=== PATIENT | male | born 1950 | race Caucasian/White ===

== ENCOUNTER 2021-12-25 17:41 | Inpatient (IN) | payer MEDICARE ==
[~2021-12-25] VITALS: Ht 167.6 cm; Wt 70.3 kg
[2021-12-25] MEDS ORDERED: MIDAZOLAM HCL 2 MG/2 ML VIAL IV ONE (18:30)
[2021-12-25 18:37] LABS: BG BASE EXCESS 2.3 mmol/L (-2.0-2.0); BG CARBOXYHEMOGLOBIN 0.2 % (0.5-1.5); BG DEOXYHEMOGLOBIN 2.5 % (0.0-5.0); BG FRACTION INSPIRED OXYGEN 21; BG HCO3 ACT 23.5 mmol/L (22.0-26.0); BG METHEMOGLOBIN 0.2 % (0.0-1.5); BG OXYGEN SATURATION 97.5 % (92.0-98.5); BG OXYHEMOGLOBIN 97.1 % (94.0-97.0); BG PCO2 26.9 mmHg (35.0-45.0); BG PH 7.559 (7.350-7.450); BG SAMPLE SITE RIGHT RADIAL; BG TOTAL HEMOGLOBIN 12.8 g/dL (12.0-18.0); BG VENT MODE ROOM AIR
[2021-12-25 18:46] LABS: CHLORIDE 72 mEq/L (98-107)
[2021-12-25 18:52] LABS: BASOPHILS % 0.2 % (0.0-2.0); EOSINOPHILS % 0.3 % (0.0-5.0); HEMATOCRIT. 35.4 % (42.0-52.0); HEMOGLOBIN. 12.6 g/dL (14.0-18.0); LYMPHOCYTES % 7.8 % (20.0-50.0); MEAN CORPUSCULAR HEMOGLOBIN 30.4 pg (28.0-32.0); MEAN CORPUSCULAR VOLUME 85.2 fL (80.0-94.0); MEAN PLATELET VOLUME 8.8 fl (7.4-10.4); MONOCYTES % 9.8 % (2.0-8.0); NEUTROPHILS % 81.9 % (40.0-76.0); PLATELET 216 x1000/uL (130-400); RED BLOOD CELL COUNT 4.15 mill/uL (4.7-6.1); RED CELL DISTRIBUTION WIDTH 13.3 % (11.6-14.6)
[2021-12-25 18:55] LABS: ETHANOL BLOOD < 10 mg/dL
[2021-12-25] MEDS ORDERED: POTASSIUM CHLORIDE INJ 40 MEQ in DEXT 5% WATER 250 ML IV ONE (19:15)
[2021-12-25] MEDS ORDERED: SODIUM CHLORIDE 3% 500ML IV SOLN IV ONE (19:15)
[2021-12-25] MEDS ORDERED: SODIUM CHLORIDE 3% 150 ML IV NR (19:30)
[2021-12-25] MEDS: KCL 20MEQ/100ML X 2 FOR TOTAL KCL 40MEQ/200ML IV SCH ×2 (20:30→21:30)
[2021-12-26] VITALS (7 sets, daily range): BP systolic 130–182; BP diastolic 69–89
[2021-12-26 03:57] LABS: *AMPHETAMINES SCREEN URINE NEGATIVE (NEGATIVE); *BARBITURATES SCREEN URINE NEGATIVE (NEGATIVE); *BENZODIAZEPINES SCREEN URINE PRESUMTIVE POSITIVE (NEGATIVE); *COCAINE SCREEN URINE NEGATIVE (NEGATIVE); CANNABINOID URINE SCREEN NEGATIVE (NEGATIVE); METHADONE URINE SCREEN NEGATIVE (NEGATIVE); OPIATES URINE SCREEN NEGATIVE (NEGATIVE); PHENCYCLIDINE URINE SCREEN NEGATIVE (NEGATIVE)
[2021-12-26 04:12] LABS: CLARITY URINE CLEAR (CLEAR); COLOR URINE YELLOW (YELLOW); KETONES URINE TRACE (NEGATIVE); PROTEIN URINE TRACE (NEGATIVE); SPECIFIC GRAVITY URINE 1.008 (1.005-1.030)
[2021-12-26 04:13] LABS: LEUKOCYTE ESTERASE URINE NEGATIVE (NEGATIVE); NITRITE URINE NEGATIVE (NEGATIVE); OCCULT BLOOD URINE 1+ (NEGATIVE)
[2021-12-26] MEDS ORDERED: ONDANSETRON HCL 4MG/2ML INJ IV PRN (11:00)
[2021-12-26] MEDS ORDERED: MORPHINE SULFATE 2 MG/ML CPJ (NOT FOR IM USE) IV PRN (11:00)
[2021-12-26] MEDS ORDERED: IPRATROPIUM/ALBUTEROL 0.5-3(2.5)MG/3ML NEB NEB PRN (11:00)
[2021-12-26] MEDS ORDERED: ACETAMINOPHEN 650MG SUPP PR PRN (11:00)
[2021-12-26] MEDS ORDERED: DIPHENHYDRAMINE 50MG/ML VIAL IV PRN (11:00)
[2021-12-26] MEDS: SODIUM CHLORIDE 0.9% 1,000 ML IV SCH ×2 (11:30→23:45)
[2021-12-26] MEDS: PIPERACILLIN/TAZOBACTAM 3.375 G in DEXTROSE 5% WATER 50 ML IV SCH ×2 (13:07→22:30)
[2021-12-26] MEDS ORDERED: LOSA100T32 MT (13:15)
[2021-12-26] MEDS ORDERED: FINA5TAB3 MT (13:15)
[2021-12-26] MEDS ORDERED: DOXA4TAB3 MT (13:15)
[2021-12-26] MEDS ORDERED: HYDR25TA MT (13:15)
[2021-12-26 13:16] LABS: CHLORIDE 79 mEq/L (98-107)
[2021-12-26] MEDS ORDERED: KEPP500 MT (13:17)
[2021-12-26] MEDS ORDERED: METF-414 MT (13:17)
[2021-12-26 13:22] LABS: PROTHROMBIN TIME 10.7 sec (9.6-11.0)
[2021-12-26 13:52] LABS: BASOPHILS % 0.1 % (0.0-2.0); EOSINOPHILS % 0.2 % (0.0-5.0); HEMATOCRIT. 33.5 % (42.0-52.0); HEMOGLOBIN. 12.1 g/dL (14.0-18.0); LYMPHOCYTES % 7.6 % (20.0-50.0); MEAN CORPUSCULAR HEMOGLOBIN 30.5 pg (28.0-32.0); MEAN PLATELET VOLUME 8.9 fl (7.4-10.4); MONOCYTES % 10.8 % (2.0-8.0); NEUTROPHILS % 81.3 % (40.0-76.0); PLATELET 232 x1000/uL (130-400); RED BLOOD CELL COUNT 3.95 mill/uL (4.7-6.1); RED CELL DISTRIBUTION WIDTH 13.3 % (11.6-14.6)
[2021-12-26] MEDS ORDERED: NALOXONE HCL 0.4MG/ML VIAL IV PRN (14:00)
[2021-12-26] MEDS: FINASTERIDE 5MG TABLET PO SCH (14:47)
[2021-12-26] MEDS ORDERED: POTASSIUM CHLORIDE INJ 60 MEQ in DEXT 5% WATER 500 ML IV ONE (15:00)
[2021-12-26] MEDS ORDERED: DEXTROSE 50% WATER 50ML SYRINGE IV PRN (15:30)
[2021-12-26] MEDS: BLOOD SUGAR DIAGNOSTIC STRIP TEST SCH ×2 (17:27→21:44)
[2021-12-26] MEDS: INSULIN LISPRO 100 UNITS/ML SUBCUT SCH ×2 (17:43→22:00)
[2021-12-26] MEDS: LEVETIRACETAM 500MG TABLET PO SCH (17:44)
[2021-12-26 17:53] LABS: SODIUM URINE RANDOM 29 mEq/L
[2021-12-26 18:46] LABS: CHLORIDE 81 mEq/L (98-107)
[2021-12-26 18:59] LABS: CREATINE KINASE 203 IU/L (39-308); CREATINE KINASE MB FRACTION 5.4 ng/mL (0.5-3.6)
[2021-12-26] MEDS: LOSARTAN POTASSIUM 50 MG TABLET PO SCH (21:44)
[2021-12-26] MEDS: LORAZEPAM 2MG/ML CPJ IV PRN (23:13)
[2021-12-27] VITALS (11 sets, daily range): BP systolic 133–189; BP diastolic 57–104
[2021-12-27 02:41] LABS: CHLORIDE 86 mEq/L (98-107)
[2021-12-27 02:50] LABS: CREATINE KINASE 176 IU/L (39-308); CREATINE KINASE MB FRACTION 4.3 ng/mL (0.5-3.6)
[2021-12-27] MEDS: PIPERACILLIN/TAZOBACTAM 3.375 G in DEXTROSE 5% WATER 50 ML IV SCH ×3 (05:08→21:32)
[2021-12-27] MEDS: BLOOD SUGAR DIAGNOSTIC STRIP TEST SCH ×4 (06:56→20:18)
[2021-12-27 07:05] LABS: BASOPHILS % 0.2 % (0.0-2.0); EOSINOPHILS % 0.5 % (0.0-5.0); HEMATOCRIT. 34.5 % (42.0-52.0); HEMOGLOBIN. 12.4 g/dL (14.0-18.0); LYMPHOCYTES % 10.6 % (20.0-50.0); MEAN CORPUSCULAR HEMOGLOBIN 31.3 pg (28.0-32.0); MONOCYTES % 10.5 % (2.0-8.0); NEUTROPHILS % 78.2 % (40.0-76.0); PLATELET 253 x1000/uL (130-400); RED BLOOD CELL COUNT 3.97 mill/uL (4.7-6.1); RED CELL DISTRIBUTION WIDTH 13.6 % (11.6-14.6)
[2021-12-27 07:08] LABS: CHLORIDE 86 mEq/L (98-107)
[2021-12-27 07:32] LABS: HDL CHOLESTEROL 45 mg/dL (40-59); LDL CHOLESTEROL 110 mg/dL (5-100)
[2021-12-27] MEDS: INSULIN LISPRO 100 UNITS/ML SUBCUT SCH ×4 (07:40→21:31)
[2021-12-27] MEDS: FINASTERIDE 5MG TABLET PO SCH (08:50)
[2021-12-27] MEDS: LORAZEPAM 2MG/ML CPJ IV PRN ×2 (08:50→13:54)
[2021-12-27] MEDS: LOSARTAN POTASSIUM 50 MG TABLET PO SCH ×2 (08:50→17:17)
[2021-12-27] MEDS: LEVETIRACETAM 500MG TABLET PO SCH ×2 (08:50→17:16)
[2021-12-27] MEDS ORDERED: FAMOTIDINE 20MG/2ML VIAL IV SCH (09:00)
[2021-12-27] MEDS: SODIUM CHLORIDE 0.9% 1,000 ML IV SCH ×2 (10:43→20:18)
[2021-12-27] MEDS ORDERED: POTASSIUM CHLORIDE 20MEQ TABLET SR PO SCH ×2 (13:00→15:00)
[2021-12-27] MEDS ORDERED: POTASSIUM CHLORIDE INJ 40 MEQ in DEXT 5% WATER 250 ML IV ONE (13:00)
[2021-12-27] MEDS: HYDRALAZINE 20MG/ML VIAL IV PRN ×2 (13:26→20:17)
[2021-12-27] MEDS: KCL 20MEQ/100ML X 2 FOR TOTAL KCL 40MEQ/200ML IV SCH ×2 (15:30→17:17)
[2021-12-27 16:31] LABS: CHLORIDE 86 mEq/L (98-107)
[2021-12-27] MEDS: AMLODIPINE 5MG TABLET PO SCH (17:17)
[2021-12-27] MEDS ORDERED: CLONIDINE 0.2MG TABLET PO PRN (19:00)
[2021-12-28] VITALS (12 sets, daily range): BP systolic 111–163; BP diastolic 54–88
[2021-12-28] MEDS: SODIUM CHLORIDE 0.9% 1,000 ML IV SCH ×3 (05:31→20:52)
[2021-12-28] MEDS: PIPERACILLIN/TAZOBACTAM 3.375 G in DEXTROSE 5% WATER 50 ML IV SCH ×3 (05:31→23:18)
[2021-12-28] MEDS: HYDRALAZINE 20MG/ML VIAL IV PRN (07:12)
[2021-12-28] MEDS: BLOOD SUGAR DIAGNOSTIC STRIP TEST SCH ×4 (07:30→23:05)
[2021-12-28] MEDS: INSULIN LISPRO 100 UNITS/ML SUBCUT SCH ×4 (08:00→22:55)
[2021-12-28] MEDS: LEVETIRACETAM 500MG TABLET PO SCH ×2 (08:27→18:08)
[2021-12-28] MEDS: LOSARTAN POTASSIUM 50 MG TABLET PO SCH ×2 (08:28→23:10)
[2021-12-28] MEDS: AMLODIPINE 5MG TABLET PO SCH ×2 (08:28→23:10)
[2021-12-28] MEDS: FINASTERIDE 5MG TABLET PO SCH (08:28)
[2021-12-28] MEDS: FAMOTIDINE 20MG TABLET PO SCH (08:28)
[2021-12-28] MEDS: ACETAMINOPHEN 650MG/20.3ML UDC PO PRN (08:43)
[2021-12-28] MEDS: POTASSIUM CHLORIDE 20MEQ TABLET SR PO SCH ×2 (13:30→18:08)
[2021-12-29] VITALS (16 sets, daily range): BP systolic 141–174; BP diastolic 72–109
[2021-12-29 06:25] LABS: BASOPHILS % 0.4 % (0.0-2.0); EOSINOPHILS % 0.7 % (0.0-5.0); HEMATOCRIT. 37.3 % (42.0-52.0); HEMOGLOBIN. 12.9 g/dL (14.0-18.0); LYMPHOCYTES % 10.9 % (20.0-50.0); MEAN CORPUSCULAR HEMOGLOBIN 30.6 pg (28.0-32.0); MEAN PLATELET VOLUME 8.3 fl (7.4-10.4); MONOCYTES % 8.9 % (2.0-8.0); NEUTROPHILS % 79.1 % (40.0-76.0); PLATELET 303 x1000/uL (130-400); RED CELL DISTRIBUTION WIDTH 13.8 % (11.6-14.6)
[2021-12-29] MEDS: BLOOD SUGAR DIAGNOSTIC STRIP TEST SCH ×4 (06:28→21:53)
[2021-12-29] MEDS: PIPERACILLIN/TAZOBACTAM 3.375 G in DEXTROSE 5% WATER 50 ML IV SCH ×3 (06:47→22:00)
[2021-12-29 07:07] LABS: CHLORIDE 97 mEq/L (98-107)
[2021-12-29] MEDS: INSULIN LISPRO 100 UNITS/ML SUBCUT SCH ×4 (07:30→21:00)
[2021-12-29] MEDS: LEVETIRACETAM 500MG TABLET PO SCH ×2 (09:32→17:56)
[2021-12-29] MEDS: LOSARTAN POTASSIUM 50 MG TABLET PO SCH ×2 (09:32→21:58)
[2021-12-29] MEDS: FAMOTIDINE 20MG TABLET PO SCH (09:32)
[2021-12-29] MEDS: AMLODIPINE 5MG TABLET PO SCH ×2 (09:32→21:58)
[2021-12-29] MEDS: FINASTERIDE 5MG TABLET PO SCH (09:32)
[2021-12-29] MEDS: POTASSIUM CHLORIDE 20MEQ TABLET SR PO SCH ×2 (09:32→17:56)
[2021-12-29] MEDS: HYDRALAZINE 20MG/ML VIAL IV PRN (10:39)
[2021-12-29] MEDS: SODIUM CHLORIDE 0.9% 1,000 ML IV SCH (13:06)
[2021-12-30] VITALS (16 sets, daily range): BP systolic 139–191; BP diastolic 60–109
[2021-12-30] MEDS: SODIUM CHLORIDE 0.9% 1,000 ML IV SCH ×2 (05:00→22:06)
[2021-12-30 06:57] LABS: CHLORIDE 98 mEq/L (98-107)
[2021-12-30 07:01] LABS: BASOPHILS % 0.5 % (0.0-2.0); EOSINOPHILS % 0.5 % (0.0-5.0); HEMATOCRIT. 39.2 % (42.0-52.0); LYMPHOCYTES % 11.9 % (20.0-50.0); MEAN CORPUSCULAR HEMOGLOBIN 30.5 pg (28.0-32.0); MEAN PLATELET VOLUME 8.2 fl (7.4-10.4); MONOCYTES % 8.1 % (2.0-8.0); PLATELET 275 x1000/uL (130-400); RED BLOOD CELL COUNT 4.26 mill/uL (4.7-6.1); RED CELL DISTRIBUTION WIDTH 14.1 % (11.6-14.6)
[2021-12-30] MEDS: PIPERACILLIN/TAZOBACTAM 3.375 G in DEXTROSE 5% WATER 50 ML IV SCH ×3 (07:09→22:04)
[2021-12-30] MEDS: BLOOD SUGAR DIAGNOSTIC STRIP TEST SCH ×4 (07:09→22:00)
[2021-12-30] MEDS: INSULIN LISPRO 100 UNITS/ML SUBCUT SCH ×4 (07:34→22:00)
[2021-12-30] MEDS: AMLODIPINE 5MG TABLET PO SCH ×2 (08:45→22:05)
[2021-12-30] MEDS: LEVETIRACETAM 500MG TABLET PO SCH ×2 (08:45→16:40)
[2021-12-30] MEDS: POTASSIUM CHLORIDE 20MEQ TABLET SR PO SCH ×2 (08:45→16:41)
[2021-12-30] MEDS: FAMOTIDINE 20MG TABLET PO SCH (08:45)
[2021-12-30] MEDS: FINASTERIDE 5MG TABLET PO SCH (08:45)
[2021-12-30] MEDS: LOSARTAN POTASSIUM 50 MG TABLET PO SCH ×2 (08:45→22:04)
[2021-12-30] MEDS: HYDRALAZINE 20MG/ML VIAL IV PRN (11:04)
[2021-12-30] MEDS ORDERED: SODIUM CHLORIDE 3% 500ML IV SOLN IV ONE (15:15)
[2021-12-30] MEDS ORDERED: SODIUM CHLORIDE 3% 160 ML IV SCH (16:00)
[2021-12-30] MEDS ORDERED: FUROSEMIDE 40MG/4ML VIAL IVP NR (20:00)
[2021-12-31] VITALS (14 sets, daily range): BP systolic 124–158; BP diastolic 47–121
[2021-12-31] MEDS: PIPERACILLIN/TAZOBACTAM 3.375 G in DEXTROSE 5% WATER 50 ML IV SCH ×2 (07:13→13:58)
[2021-12-31] MEDS: SODIUM CHLORIDE 0.9% 1,000 ML IV SCH (07:40)
[2021-12-31] MEDS: BLOOD SUGAR DIAGNOSTIC STRIP TEST SCH ×3 (08:00→17:39)
[2021-12-31] MEDS: INSULIN LISPRO 100 UNITS/ML SUBCUT SCH ×3 (08:00→18:00)
[2021-12-31] MEDS: LEVETIRACETAM 500MG TABLET PO SCH ×2 (10:33→18:37)
[2021-12-31] MEDS: POTASSIUM CHLORIDE 20MEQ TABLET SR PO SCH ×2 (10:34→18:37)
[2021-12-31] MEDS: FAMOTIDINE 20MG TABLET PO SCH (10:34)
[2021-12-31] MEDS: LOSARTAN POTASSIUM 50 MG TABLET PO SCH (10:34)
[2021-12-31] MEDS: FINASTERIDE 5MG TABLET PO SCH (10:35)
[2021-12-31] MEDS: AMLODIPINE 5MG TABLET PO SCH (10:35)
[2021-12-31] MEDS: ACETAMINOPHEN 650MG/20.3ML UDC PO PRN (13:43)
[2021-12-31 14:10] LABS: CHLORIDE 97 mEq/L (98-107)
== END 2021-12-31 19:30 | disposition home or self-care (01) | DRG 640 ==
LOC: ER 17:41 → EDBEDREQ 19:18 → MICUSO 21:12 → EDBEDREQTM 21:21 → EDBEDREQSVC 21:21 → EDBEDREQ 21:21 → 5EST 12-26 10:05
PROVIDERS: ADMIT Internal Medicine; ATTEND Internal Medicine
PROC: 06HY33Z Insertion of Infusion Device into Lower Vein, Percutaneous Approach (ICD-10-PCS; 2021-12-25)
PROC: 4A00X4Z Measurement of Central Nervous Electrical Activity, External Approach (ICD-10-PCS; principal; 2021-12-31)
DX: E87.1 Hypo-osmolality and hyponatremia (principal); G93.41 Metabolic encephalopathy; C79.31 Secondary malignant neoplasm of brain; G90.8 Other disorders of autonomic nervous system; F48.8 Other specified nonpsychotic mental disorders; D64.9 Anemia, unspecified; E87.6 Hypokalemia; I10 Essential (primary) hypertension; E11.9 Type 2 diabetes mellitus without complications; C67.9 Malignant neoplasm of bladder, unspecified; Z87.828 Personal history of other (healed) physical injury and trauma; T50.2X5A Adverse effect of carbonic-anhydrase inhibitors, benzothiadiazides and other diuretics, initial encounter; Y92.89 Other specified places as the place of occurrence of the external cause
CPT/HCPCS: 36415; 36600; 70486; 70551; 70552; 71045; 71250; 73110; 73200; 74176; 76857; 80048; 80053; 80061; 80305; 80320; 81003; 82140; 82375; 82378; 82533; 82550; 82553; 82805; 82962; 83735; 83930; 83935; 84132; 84153; 84300; 84443; 84484; 85025; 86301; 93005; 93306; 93880; 93970; 93971; 95816; 97116; 97162; 99291; J0360; J1200; J1815; J1940; J2060; J2250; J2543; J3480; J3490; J7030; J7060; A4315; G0103; G0480